=== PATIENT | male | born 1980 | race Caucasian/White ===

== ENCOUNTER 2017-10-13 22:29 | Emergency (ER) | payer OTHER, SELFPAY ==
[2017-10-13 22:30] VITALS: BP 131/88; PULSE 68; RESP 15; TEMP 36.4; BMI 30.1
--- NOTE | 2017-10-13 22:44 | CT_ITS ---
STUDY: CT BRAIN WITHOUT CONTRAST REASON FOR EXAM: Male, 37 years old. Dizziness. RADIATION DOSAGE (If Supplied By Facility): CTDIvol = ( 44.99 ) mGy, DLP = ( 745.49 ) mGycm TECHNIQUE: Transaxial CT imaging of the brain was performed without administration of intravenous contrast material. Individualized dose optimization techniques were used for this CT. COMPARISON: None. FINDINGS: Normal soft tissue structures. Normal calvarium. Normal size ventricles and extra-axial spaces for the patient's age. Normal white matter tracts of the cerebral hemispheres. Normal basal ganglia and thalami. Normal brainstem. Normal cerebellum. There is no intracranial hemorrhage. There are no findings of an acute ischemic infarction. Normal visualized paranasal sinuses. CT/Brain/Head without Contrast IMPRESSION: Normal unenhanced CT scan of the brain. Electronically Signed: Bimal Gonzalez MD at 0:52 EDT , Service support ,
[2017-10-13] MEDS: Ondansetron 4 MG/2 ML Vial IV (23:19)
[2017-10-13] MEDS: 0.9% Normal Saline 1,000 ML 1000 ML IV (23:19)
[2017-10-13] MEDS: Meclizine HCl 25 MG Tablet PO (23:30)
[2017-10-13 23:57] LABS: ALB/GLOB Ratio 1.1 RATIO (0.9-2.4); AST(SGOT) 35 U/L (15-37); Alanine Aminotransfer ALT/SGPT 41 U/L (16-61); Albumin, Serum 4.3 g/dL (3.2-5.0); Alkaline Phosphatase 93 U/L (45-117); Anion Gap 9 (5-15); BUN 12 mg/dL (7-18); BUN/Creat Ratio 11.7 RATIO (10-20); Calcium,Total 8.8 mg/dL (8.5-10.1); Chloride 105 mmol/L (98-107); Creatinine, Serum 1.03 mg/dL (0.70-1.30); EST Glomerular Filtration Rate 85 mL/min (>60); Est Glom Filt Rate - Afr Amer 103 mL/min (>60); Estimated Creatinine Clearance 99.42 ml/min; Globulin 3.8 g/dL (2.2-4.2); Glucose 122 mg/dL (74-106); Lipase 56 U/L (73-393); Potassium 4.1 mmol/L (3.5-5.1); Protein, Total 8.1 g/dL (6.4-8.2); Sodium Level 142 mmol/L (136-145)
--- NOTE | 2017-10-14 02:34 | ED.VISSUMM ---
- ER Visit Summary Date of Service: 10/14/17 Chief Complaint: [Dizziness, nausea vomiting] History of Present Illness: The patient is a 37 M [presents the emergency department with complaint of dizziness that started earlier today while watching television. Patient states it was sudden in onset and developed acute nausea and vomiting associated with it. Patient states he had a similar episode about 2 weeks ago. Patient's is concerned that he has been complaining intermittently of abdominal pain for the last month however at this time patient has no abdominal pain. Patient's had no fever or recent illness. Patient has not had any falls or head injuries. Patient denies any headache. The dizziness is made worse by certain head movements.] Physical Examination: [HEENT-PERRLA, EOMI. Cranial nerves II through XII grossly intact. TMs clear. Mucous membranes moist. No adenopathy. Cardiovascular-regular rate and rhythm without murmur or ectopy Lungs-clear to auscultation, chest wall stable without crepitus or subcu emphysema Abdomen-normoactive bowel sounds, soft, nontender, no rebound or rigidity, no peritoneal signs. Neuro mcnm-omzmes-vdkx and heel khan testing within normal limits, negative Romberg, negative pronator, fundi benign. Hallpike maneuver performed did not elicit any nystagmus Extremities-intact ?4, normal range of motion, normal pulses, atraumatic] Test Results: [The brain without contrast was normal. Chemistries unremarkable. LFTs were unremarkable. Lipase was 56.] Emergency Department Course and Treatment: [Patient was medicated with Antivert 25 mg p.o. as well as 4 mg of Zofran IV and his symptoms mostly resolved.] Treatment Plan: [I suspect likely benign positional vertigo therefore patient will be treated with Antivert and Zofran. Patient will be referred to neurology on-call for follow-up.] Disposition: [Discharged to home in stable condition. Patient advised to return if persistent dizziness, difficulty with balance, persistent vomiting, or condition should worsen in any way.] Impression: [Benign positional vertigo] This note was generated with [employer] dictation software. It may contain incorrect words, spelling, and punctuation that were not noted in review of the chart prior to signing ED Disposition - Plan for ED Patient: Chief Complaint: Abd Pain Referrals: Ike Osuna MD [Primary Care Provider] -
--- NOTE | 2017-10-14 02:37 | ED.DCSUM_ITS ---
- ER Visit Summary Date of Service: 10/14/17 Chief Complaint: [Dizziness, nausea vomiting] History of Present Illness: The patient is a 37 M [presents the emergency department with complaint of dizziness that started earlier today while watching television. Patient states it was sudden in onset and developed acute nausea and vomiting associated with it. Patient states he had a similar episode about 2 weeks ago. Patient's is concerned that he has been complaining intermittently of abdominal pain for the last month however at this time patient has no abdominal pain. Patient's had no fever or recent illness. Patient has not had any falls or head injuries. Patient denies any headache. The dizziness is made worse by certain head movements.] Physical Examination: [HEENT-PERRLA, EOMI. Cranial nerves II through XII grossly intact. TMs clear. Mucous membranes moist. No adenopathy. Cardiovascular-regular rate and rhythm without murmur or ectopy Lungs-clear to auscultation, chest wall stable without crepitus or subcu emphysema Abdomen-normoactive bowel sounds, soft, nontender, no rebound or rigidity, no peritoneal signs. Neuro zeyu-nmhigg-knpw and heel khan testing within normal limits, negative Romberg, negative pronator, fundi benign. Hallpike maneuver performed did not elicit any nystagmus Extremities-intact ?4, normal range of motion, normal pulses, atraumatic] Test Results: [The brain without contrast was normal. Chemistries unremarkable. LFTs were unremarkable. Lipase was 56.] Emergency Department Course and Treatment: [Patient was medicated with Antivert 25 mg p.o. as well as 4 mg of Zofran IV and his symptoms mostly resolved.] Treatment Plan: [I suspect likely benign positional vertigo therefore patient will be treated with Antivert and Zofran. Patient will be referred to neurology on-call for follow-up.] Disposition: [Discharged to home in stable condition. Patient advised to return if persistent dizziness, difficulty with balance, persistent vomiting, or condition should worsen in any way.] Impression: [Benign positional vertigo] This note was generated with [employer] dictation software. It may contain incorrect words, spelling, and punctuation that were not noted in review of the chart prior to signing ED Disposition - Plan for ED Patient: Chief Complaint: Abd Pain Referrals: Ike Osuna MD [Primary Care Provider] -
--- NOTE | 2017-10-14 02:37 | ED.DEP ---
ED Disposition - Plan for ED Patient: Chief Complaint: Abd Pain Instructions: ED BPV Vertigo Prescriptions: Ondansetron [Zofran Odt] 4 mg PO Q8H PRN PRN #10 tab PRN Reason: Nausea Meclizine HCl [Antivert] 25 mg PO 4X/DAY PRN PRN #20 tab PRN Reason: Dizziness Referrals: Ike Osuna MD [Primary Care Provider] - Rosa Elena Rosales MD [STAFF PHYSICIAN] - 5-7 Days
[2017-10-14 02:40] LABS: Absolute Lymphocyte Count 1.09 X10^3/ul (0.83-4.51); Basophil# 0.01 X10^3/uL; Basophil% 0.1 % (0-1); Eosinophil# 0.01 X10^3/uL; Eosinophils% 0.1 % (0-5); Hematocrit 42.8 % (40-54); Hemoglobin 14.9 g/dl (13.0-16.5); Lymphocyte # 1.09 X10^3/ul (4.0); Lymphocyte % 11.2 % (19-41); Mean Corp Hgb Conc 34.8 g/gl (32-36); Mean Corpuscular Volume 83.3 fL (80-94); Mean Platelet Vol. 9.4 fl (6.2-12.0); Monocyte# 0.63 X10^3/uL; Monocyte% 6.5 % (0-10); Neutrophil # 7.96 X10^3/uL (2.7-7.7); Neutrophil % 81.9 % (47-70); POSITIVE COUNT NO; POSITIVE DIFFERENTIAL NO; POSITIVE MORPHOLOGY NO; Platelet Count 195 K/mm3 (150-450); RBC Distribution Width CV 12.9 % (11.6-14.6); RBC Distribution Width SD 38.9 fl (35.1-43.9); Red Blood Count 5.14 M/mm3 (4.6-6.2); White Blood Count 9.7 K/mm3 (4.4-11.0)
[2017-10-14] MEDS: Ondansetron ODT 4 MG Tablet PO (02:54)
[2017-10-14 02:56] VITALS: BP 130/90; PULSE 55; RESP 16; O2SAT 96
== END 2017-10-14 02:57 | disposition home or self-care (01) ==
PROVIDERS: Emergency Provider Emergency Medicine; Family Provider Family Medicine; PCP Family Medicine
DX: H81.10 Benign paroxysmal vertigo, unspecified ear (principal)
CPT/HCPCS: 70450; 80048; 80053; 83690; 85025; 96361; 96374; 99282; J7030; J2405

== ENCOUNTER → 2020-11-15 20:00 | Outpatient (CLI) | payer BC, SELFPAY | PROVIDERS: PCP Family Medicine; Visit Provider Family Medicine | DX: G47.30 Sleep apnea, unspecified (principal); E66.9 Obesity, unspecified | CPT/HCPCS: 95810 ==

== ENCOUNTER → 2021-01-03 20:00 | Outpatient (CLI) | payer BC, SELFPAY | PROVIDERS: PCP Family Medicine; Referring Provider Family Medicine; Visit Provider Family Medicine | DX: G47.33 Obstructive sleep apnea (adult) (pediatric) (principal) | CPT/HCPCS: 95811 ==

== ENCOUNTER → 2021-02-10 08:51 | Outpatient (CLI) | payer BC, SELFPAY | PROVIDERS: PCP Family Medicine; Visit Provider Family Medicine | DX: Z46.89 Encounter for fitting and adjustment of other specified devices (principal) ==